=== PATIENT | female | born 1980 | race American Indian/Alaskan Native ===

== ENCOUNTER 2017-01-30 18:19 | Emergency (ER) | payer BC ==
[2017-01-30 18:49] VITALS: BMI 28.3
[2017-01-30 19:08] VITALS: RESP 16; O2SAT 99
[2017-01-30 19:15] VITALS: TEMP 98.2
--- NOTE | 2017-01-30 20:31 | ED PDOC ---
Arrival/HPI - General Chief Complaint: Abdominal Pain Time Seen by Provider: 01/30/17 19:24 Historian: Patient - History of Present Illness Narrative History of Present Illness (Text): 01/30/17 19:35 Cynthia Riley is a 36 year old female, who has no significant past medical history, who presents to the emergency department complaining of intermittent chest pain throughout today. Patient states that she has had intermittent discomfort during the last week as well. Today, patient's symptoms appeared more frequently prompting her to come to the emergency department. Patient denies any fevers, chills, cough, trauma, shortness of breath, leg pain, or any other complaints at this time. Patient notes that she has a family history of heart disease. Time/Duration: 24 hours Symptom Onset: Gradual Symptom Course: Unchanged, Intermittent Activities at Onset: Light Context: Home Past Medical History - Provider Review Nursing Documentation Reviewed: Yes - Infectious Disease Hx of Infectious Diseases: None - Tetanus Immunization Tetanus Immunization: Unknown - Past Medical History Past Medical History: No Previous - Cardiac Hx Cardiac Disorders: No - Pulmonary Hx Respiratory Disorders: No - Neurological Hx Neurological Disorder: No - HEENT Hx HEENT Disorder: No - Renal Hx Renal Disorder: No - Endocrine/Metabolic Hx Endocrine Disorders: No - Hematological/Oncological Hx Blood Disorders: No - Integumentary Hx Dermatological Disorder: No - Musculoskeletal/Rheumatological Hx Musculoskeletal Disorders: No - Gastrointestinal Hx Gastrointestinal Disorders: No - Genitourinary/Gynecological Hx Genitourinary Disorders: No Other/Comment: fibroid, past misscarage - Psychiatric Hx Psychophysiologic Disorder: No Hx Substance Use: No - Past Surgical History Past Surgical History: No Previous - Anesthesia Hx Anesthesia: No - Suicidal Assessment Feels Threatened In Home Enviroment: No Family/Social History - Physician Review Nursing Documentation Reviewed: Yes Family/Social History: CAD/IN Smoking Status: Never Smoked Hx Alcohol Use: No Hx Substance Use: No Hx Substance Use Treatment: No Allergies/Home Meds Allergies/Adverse Reactions: Allergies No Known Allergies Allergy (Verified 01/30/17 19:08) Home Medications: Home Meds Medication Instructions Recorded Confirmed No Known Home Med 01/30/17 01/30/17 Review of Systems - Physician Review All systems were reviewed & negative as marked: Yes - Review of Systems Constitutional: absent: Fevers, Night Sweats Eyes: absent: Vision Changes ENT: absent: Hearing Changes Respiratory: absent: SOB, Cough Cardiovascular: Chest Pain Gastrointestinal: absent: Abdominal Pain Genitourinary Female: absent: Dysuria, Frequency Skin: absent: Rash, Pruritis Neurological: absent: Headache Endocrine: absent: Diaphoresis Hemo/Lymphatic: absent: Adenopathy Psychiatric: absent: Depression Physical Exam Vital Signs Reviewed: Yes Vital Signs Temp Pulse Resp BP Pulse Ox 01/30/17 22:47 78 16 122/75 99 01/30/17 18:51 56 L 16 125/76 99 01/30/17 18:49 98.2 F 56 L 16 125/76 99 Temperature: Afebrile Blood Pressure: Normal Pulse: Bradycardic Respiratory Rate: Normal Appearance: Positive for: Well-Appearing, Non-Toxic, Comfortable Pain Distress: None Mental Status: Positive for: Alert and Oriented X 3 - Systems Exam Head: Present: Atraumatic, Normocephalic Pupils: Present: PERRL Extroacular Muscles: Present: EOMI Conjunctiva: Present: Normal Mouth: Present: Moist Mucous Membranes Neck: Present: Normal Range of Motion Respiratory/Chest: Present: Clear to Auscultation, Good Air Exchange. No: Respiratory Distress, Accessory Muscle Use Cardiovascular: Present: Regular Rate and Rhythm, Normal S1, S2. No: Murmurs Abdomen: Present: Normal Bowel Sounds. No: Tenderness, Distention, Peritoneal Signs Back: Present: Normal Inspection Upper Extremity: Present: Normal Inspection. No: Cyanosis, Edema Lower Extremity: Present: Normal Inspection. No: Edema Neurological: Present: GCS=15, CN II-XII Intact, Speech Normal Skin: Present: Warm, Dry, Normal Color. No: Rashes Psychiatric: Present: Alert, Oriented x 3, Normal Insight, Normal Concentration Medical Decision Making ED Course and Treatment: 01/30/17 19:35 Impression: 36 year old female complaining of intermittent chest pain throughout today. Differential Diagnosis included but are not limited to: Plan: -- EKG -- Chest X-ray -- Labs -- Reassess and disposition Prior Visits: Notes and results from previous visits were reviewed. Patient last seen in the ED on 03/05/15 for vaginal bleeding that day. Patient was discharged home. Progress Notes: 01/30/17 22:35 CXR interpreted by me: No acute process. EKG interpreted by me: sinus bradycardia @ 56 bpm. t wave inversions lead III. Otherwise normal EKG. 01/30/17 22:41 Patient was to leave the emergency department against medical advice. I advised the patient to stay in the hospital for completion of treatment and informed him of the risks of leaving including worsening symptoms and . States he is aware of the risk and is adamant in his decision to sign out. Leaving Against Medical Advice (AMA): This patient is choosing to leave against medical advice. I have personally explained to the patient that choosing to do so may result in permanent bodily harm or . I have discussed at great length that without further evaluation and monitoring there may be unforeseen circumstances and/or deterioration causing permanent bodily harm or as a result of their choice. The patient is alert, oriented, and shows the mental capacity to make clear decisions regarding the patients health care at this time. The patient continues to wish to leave against medical advice. The patient has been advised that they should return to the ED immediately if they change their mind at any time, or if their condition begins to change or worsen in any way. - Lab Interpretations Lab Results: 01/30/17 20:41 01/30/17 20:41 Lab Results 01/30/17 20:41: WBC 3.7 L D, RBC 4.28, Hgb 11.1 L, Hct 35.1 L, MCV 82.0, MCH 25.9, MCHC 31.6, RDW 13.2, Plt Count 221, MPV 8.2 01/30/17 20:41: Sodium 137, Potassium 3.9, Chloride 103, Carbon Dioxide 27, Anion Gap 11, BUN 10, Creatinine 0.6, Est GFR ( Amer) > 60, Est GFR (Non- Af Amer) > 60, Random Glucose 81, Calcium 9.0, Total Bilirubin 0.5, AST 21, ALT 23, Alkaline Phosphatase 48, Lactate Dehydrogenase 377, Total Creatine Kinase 74 , Troponin I < 0.01, Total Protein 6.4, Albumin 3.7, Globulin 2.7, Albumin/ Globulin Ratio 1.4 01/30/17 20:41: PT 11.1, INR 1.03, APTT 30.9 H I have reviewed the lab results: Yes - RAD Interpretation Radiology Orders: 01/30/17 19:38 CHEST PORTABLE [RAD] Stat - Scribe Statement The provider has reviewed the documentation as recorded by the Robert Johnson Provider Scribe Attestation: All medical record entries made by the Scribe were at my direction and personally dictated by me. I have reviewed the chart and agree that the record accurately reflects my personal performance of the history, physical exam, medical decision making, and the department course for this patient. I have also personally directed, reviewed, and agree with the discharge instructions and disposition. Disposition/Present on Arrival - Present on Arrival Any Indicators Present on Arrival: No History of DVT/PE: No History of Uncontrolled Diabetes: No Urinary Catheter: No History of Decub. Ulcer: No History Surgical Site Infection Following: None - Disposition Have Diagnosis and Disposition been Completed?: Yes Diagnosis: Chest pain Disposition: AGAINST MEDICAL ADVICE Disposition Time: 22:40 Condition: GOOD Discharge Instructions (ExitCare): Chest Pain (ED) Referrals: Shen Ramirez, [Primary Care Provider] - Follow up with primary Forms: [employer] (Khmer)
[2017-01-30 20:50] LABS: HEMOGLOBIN 11.1 g/dL (12.0-16.0); MEAN CORPUSCULAR HEMOGLOBIN 25.9 pg (25.0-35.0); MEAN CORPUSCULAR HGB CONC 31.6 g/dl (31.0-37.0); MEAN PLATELET VOLUME 8.2 fl (7.0-11.0); RBC 4.28 10^6/uL (3.5-6.1); RED CELL DISTRIBUTION WIDTH 13.2 % (11.5-14.5); WHITE BLOOD COUNT 3.7 10^3/ul (4.5-11.0)
[2017-01-30 21:00] LABS: INR 1.03 (0.93-1.08); PARTIAL THROMBOPLASTIN TIME 30.9 Seconds (23.7-30.8); PROTHROMBIN TIME 11.1 Seconds (9.9-11.8)
[2017-01-30 21:01] LABS: ALB/GLOB RATIO 1.4 (1.1-1.8); ALBUMIN 3.7 g/dL (3.0-4.8); ALT/SGPT 23 U/L (7-56); AST/SGOT 21 U/L (15-39); BLOOD UREA NITROGEN 10 mg/dL (7-21); GFR AFRICAN-AMERICAN > 60; GFR NON-AFRICAN AMERICAN > 60
[2017-01-30 21:13] LABS: TROPONIN I < 0.01 ng/mL
[2017-01-30 22:48] VITALS: BP 122/75; PULSE 78
--- NOTE | 2017-01-31 09:08 | RAD ---
HISTORY: pain COMPARISON: No prior. FINDINGS: LUNGS: No active pulmonary disease. PLEURA: No significant pleural effusion identified, no pneumothorax apparent. CARDIOVASCULAR: Normal. OSSEOUS STRUCTURES: No significant abnormalities. VISUALIZED UPPER ABDOMEN: Normal. OTHER FINDINGS: None. IMPRESSION: No active disease.
--- NOTE | 2017-01-31 11:51 | CARD ---
APPROVED REPORT EKG Measurement Heart [id number] <Conclusion> Sinus bradycardia Otherwise normal ECG
== END 2017-01-30 22:48 | disposition left against medical advice (07) ==
LOC: ED 18:19
DX: R07.9 Chest pain, unspecified (principal)